=== PATIENT | female | born 1960 | race Hispanic/Latino ===

== ENCOUNTER 2020-01-31 18:45 | Inpatient (IN) | payer SELFPAY ==
[~2020-01-31] VITALS: Ht 152.4 cm; Wt 67.6 kg
[2020-01-31 19:25] LABS: APPEARANCE,URINE Clear (CLEAR); BILIRUBIN,URINE Negative (NEGATIVE); COLOR,URINE Yellow (YELLOW); GLUCOSE, URINE (UA) 500 mg/dL (NEGATIVE); KETONES,URINE Trace mg/dL (NEGATIVE); LEUKOCYTE ESTERASE ,URINE Large (NEGATIVE); NITRATE,URINE Negative (NEGATIVE); OCCULT BLOOD,URINE Negative (NEGATIVE); PH,URINE 5.5 (5.0-8.0); PROTEIN,URINE Negative (NEGATIVE)
[2020-01-31 19:40] LABS: BACTERIA,URINE Moderate /HPF (None Seen); SQUAMOUS EPITHELIAL CELL,UR Few /HPF (0-2)
[2020-01-31 19:41] LABS: MUCUS,URINE Few LPF (None Seen)
[2020-01-31] MEDS ORDERED: KETOROLAC TROMETHAMINE 30MG/ML ONE (19:49)
[2020-01-31] MEDS ORDERED: CEFTRIAXONE SODIUM 2 GM VIAL ONE (19:49)
[2020-01-31] MEDS ORDERED: ONDANSETRON HCL 4 MG/2 ML VIAL ONE (19:49)
[2020-01-31] MEDS ORDERED: SODIUM CHLORIDE 0.9% 1000ML 1,000 ML IV ONE ×2 (19:49→21:48)
[2020-01-31 20:07] LABS: BASOPHILS % (AUTO) 0.3 % (0.0-5.0); EOSINOPHILS % (AUTO) 0.2 % (0.0-8.0); LYMPHOCYTES % (AUTO) 12.1 % (21.0-51.0); MEAN CORPUSCULAR HEMOGLOBIN 29.3 pg (27.0-33.0); MEAN CORPUSCULAR HGB CONC 33.9 g/dL (32.0-36.0); MEAN CORPUSCULAR VOLUME 86.4 fL (79-99); MONOCYTES % (AUTO) 7.4 % (3.0-13.0); NEUTROPHILS % (AUTO) 79.5 % (40.0-77.0); PLATELET COUNT (AUTO) 290 K/uL (130-400); RED BLOOD CELL COUNT(AUTO) 5.09 MIL/uL (4.00-5.50); RED CELL DISTRIBUTION WIDTH 11.9 % (11.0-15.5); WHITE BLOOD COUNT (AUTO) 19.1 K/uL (4.8-10.8)
[2020-01-31 20:22] LABS: CREATININE 0.6 mg/dL (0.5-1.5); POTASSIUM 3.7 mmol/L (3.5-5.1)
[2020-01-31 20:26] LABS: ALBUMIN 3.1 g/dL (3.5-5.0); BILIRUBIN,DIRECT 0.4 mg/dL (0.0-0.3); BILIRUBIN,TOTAL 1.2 mg/dL (0.2-1.0); TOTAL PROTEIN, SERUM 8.5 g/dL (6.0-8.3)
[2020-01-31] MEDS ORDERED: ZOSYN 3.375GM+NS 50ML 50 ML IV ONE (21:48)
[2020-01-31] MEDS ORDERED: HYDRALAZINE HCL 20 MG/ML VIAL IV PRN (23:15)
[2020-01-31] MEDS ORDERED: ONDANSETRON HCL 4 MG/2 ML VIAL IV PRN (23:15)
[2020-01-31] MEDS ORDERED: MORPHINE SULFATE 2 MG/ML 1ML SYG IV PRN (23:15)
[2020-01-31] MEDS ORDERED: ACETAMINOPHEN 325 MG TAB PO PRN (23:15)
[2020-02-01] VITALS (27 sets, daily range): BP systolic 91–139; BP diastolic 46–86
[2020-02-01] MEDS: SODIUM CHLORIDE 0.9% 1000ML 1,000 ML IV SCH ×2 (01:41→09:36)
[2020-02-01 02:30] LABS: HEMOGLOBIN A1C 8.8 % (4.0-6.0)
[2020-02-01] MEDS ORDERED: ZOSYN 3.375GM+NS 50ML 50 ML IV SCH (05:00)
[2020-02-01] MEDS ORDERED: METRONIDAZOLE 500MG/100ML BAG 100 ML IV SCH ×2 (05:00→06:00)
[2020-02-01 05:22] LABS: BASOPHILS % (AUTO) 0.2 % (0.0-5.0); HEMATOCRIT 37.4 % (36-48); LYMPHOCYTES % (AUTO) 16.5 % (21.0-51.0); MEAN CORPUSCULAR HEMOGLOBIN 29.3 pg (27.0-33.0); MEAN CORPUSCULAR HGB CONC 33.4 g/dL (32.0-36.0); MEAN CORPUSCULAR VOLUME 87.8 fL (79-99); MONOCYTES % (AUTO) 9.8 % (3.0-13.0); NEUTROPHILS % (AUTO) 72.1 % (40.0-77.0); PLATELET COUNT (AUTO) 237 K/uL (130-400); RED BLOOD CELL COUNT(AUTO) 4.26 MIL/uL (4.00-5.50); RED CELL DISTRIBUTION WIDTH 11.9 % (11.0-15.5); WHITE BLOOD COUNT (AUTO) 13.7 K/uL (4.8-10.8)
[2020-02-01 05:44] LABS: ALBUMIN 2.5 g/dL (3.5-5.0); BILIRUBIN,TOTAL 0.8 mg/dL (0.2-1.0); CREATININE 0.6 mg/dL (0.5-1.5); POTASSIUM 3.5 mmol/L (3.5-5.1); TOTAL PROTEIN, SERUM 6.8 g/dL (6.0-8.3)
[2020-02-01] MEDS: ZOSYN 3.375GM+NS 50ML 50 ML IV SCH ×3 (05:49→20:55)
[2020-02-01] MEDS ORDERED: METRONIDAZOLE 500 MG TABLET PO SCH (09:00)
[2020-02-01] MEDS: FAMOTIDINE 20MG TAB 20 MG TAB PO SCH ×2 (09:24→20:54)
[2020-02-01] MEDS ORDERED: LIDOCAINE PF 2% 5ML ABBOJECT ONE (09:37)
[2020-02-01] MEDS ORDERED: SUCCINYLCHOLINE CHLORIDE 20 MG/ML 10 ML VIAL ONE ×2 (09:38→09:43)
[2020-02-01] MEDS ORDERED: FENTANYL CITRATE PF 50 MCG/1 ML 2ML VIAL ONE (09:38)
[2020-02-01] MEDS ORDERED: PROPOFOL 10 MG/ML 20ML VIAL IV ONE (09:38)
[2020-02-01] MEDS ORDERED: ROCURONIUM 10MG/1ML SYR 10 MG/ML ML ONE (09:38)
--- NOTE | 2020-02-01 09:56 | NUR ---
TO OR VIA STRETCHER NOW. CONSENT OBTAINED BY PM NURSE.
[2020-02-01] MEDS ORDERED: MIDAZOLAM HCL 1 MG/ML 2ML VIAL ONE (10:20)
[2020-02-01] MEDS ORDERED: BUPIVACAINE/PF 0.5% 30ML VIAL ONE (10:35)
[2020-02-01] MEDS ORDERED: NEOSTIGMINE 5MG/5ML SYR IV ONE (10:54)
[2020-02-01] MEDS ORDERED: KETOROLAC TROMETHAMINE 30MG/ML ONE (10:54)
[2020-02-01] MEDS ORDERED: GLYCOPYRROLATE 1 MG/5 ML SYRINGE ONE (10:54)
[2020-02-01] MEDS ORDERED: ONDANSETRON HCL 4 MG/2 ML VIAL ONE (10:54)
[2020-02-01] MEDS ORDERED: MEPERIDINE-PF 25 MG/ML SYG ONE ×2 (11:28→11:43)
--- NOTE | 2020-02-01 13:30 | NUR ---
REPORT RECEIVED FROM RN KAREN IN RECOVERY,PT RETURNED TO ROOM .AWAKE AND ALERT. IVF INFUSING VIA 18G AT 100ML/HR. TOMMIE IN PLACE LT LOWER ABD AND NOW EMPTED OF 90 ML BLOOD
--- NOTE | 2020-02-01 15:56 | NUR ---
CM NOTE PT RESIDES WITH SPOUSE, INDEPENDENT WITH ADLS AND AMBULATION. DRIVES. NO DME. PROVIDED WITH [facility] AND [facility] ASSIST PRO[facility]. PT STATES WILL FOLLOWUP WITH A PCP. NO DC NEEDS. Addendum: 02/01/20 at 1559 by JODI BATRES CM Amended: Links added.
--- NOTE | 2020-02-01 17:00 | NUR ---
ASST. TO BR, VOIDED LG. AMT. WANTS TO SIT IN CHAIR.
[2020-02-01] MEDS: ACETAMINOPHEN 325 MG TAB PO PRN (21:03)
[2020-02-02] VITALS (7 sets, daily range): BP systolic 102–137; BP diastolic 41–83
[2020-02-02] MEDS: SODIUM CHLORIDE 0.9% 1000ML 1,000 ML IV SCH ×2 (05:05→20:25)
[2020-02-02 05:38] LABS: HEMATOCRIT 39.6 % (36-48); MEAN CORPUSCULAR HEMOGLOBIN 29.4 pg (27.0-33.0); MEAN CORPUSCULAR HGB CONC 33.1 g/dL (32.0-36.0); RED BLOOD CELL COUNT(AUTO) 4.45 MIL/uL (4.00-5.50); RED CELL DISTRIBUTION WIDTH 12.2 % (11.0-15.5); WHITE BLOOD COUNT (AUTO) 13.5 K/uL (4.8-10.8)
[2020-02-02] MEDS: ZOSYN 3.375GM+NS 50ML 50 ML IV SCH ×3 (06:05→22:00)
[2020-02-02 06:07] LABS: CREATININE 0.8 mg/dL (0.5-1.5); POTASSIUM 3.3 mmol/L (3.5-5.1)
[2020-02-02] MEDS ORDERED: LIDOCAINE HCL-MPF 1% 2ML VIAL IJ PRN (07:30)
[2020-02-02] MEDS ORDERED: POTASSIUM CHLORIDE 20MEQ/100ML 100 ML IV PRN (07:30)
[2020-02-02] MEDS ORDERED: POTASSIUM CHLORIDE 10% ELIXIR 20 MEQ/15 ML UDCUP PO PRN (07:30)
[2020-02-02] MEDS: FAMOTIDINE 20MG TAB 20 MG TAB PO SCH ×2 (09:40→20:25)
[2020-02-02] MEDS: MAGNESIUM 2GM PREMIX 50ML 50 ML IV SCH (09:43)
--- NOTE | 2020-02-02 11:45 | NUR ---
IN TO SEE PT. HAS BEEN INFORMED OF TOMMIE BEING DISLODGED, WILL KEEP HER IN HOUSE A COUPLE MORE DAYS CONSIDERING APPENDIX BEING RUPTURED. WILL KEEP ON CLEAR LIQUID DIET AND SAME ABX.
--- NOTE | 2020-02-02 17:00 | NUR ---
HAD A LG. BOWEL MOVEMENT, FEELING BETTER, HAD A TEMP OF 101.1 EARLIER AND WAS FRANK TYLENOL.
[2020-02-03] MEDS: SODIUM CHLORIDE 0.9% 1000ML 1,000 ML IV SCH ×3 (01:05→21:05)
[2020-02-03] MEDS: ACETAMINOPHEN 325 MG TAB PO PRN (01:06)
[2020-02-03 04:10] VITALS: BP 139/69
[2020-02-03 05:34] LABS: HEMATOCRIT 34.1 % (36-48); MEAN CORPUSCULAR HGB CONC 34.3 g/dL (32.0-36.0); MEAN CORPUSCULAR VOLUME 87.4 fL (79-99); PLATELET COUNT (AUTO) 279 K/uL (130-400); RED CELL DISTRIBUTION WIDTH 12.1 % (11.0-15.5); WHITE BLOOD COUNT (AUTO) 14.1 K/uL (4.8-10.8)
[2020-02-03] MEDS: ZOSYN 3.375GM+NS 50ML 50 ML IV SCH ×3 (05:54→21:30)
[2020-02-03 05:56] LABS: BAND NEUTROPHILS % (MANUAL) 3 % (0-2); EOSINOPHILS % (MANUAL) 4 % (1-6); LYMPHOCYTES % (MANUAL) 10 % (22-44); MAN.DIFF COMMENT-IMPRESSION MANUAL DIFFERENTIAL; MONOCYTES % (MANUAL) 2 % (2-9); SEGMENTED NEUTROPHILS % 81 % (40-70)
[2020-02-03 05:57] LABS: PLATELET MORPHOLOGY COMMENT ADEQUATE
[2020-02-03 07:38] VITALS: BP 178/70
[2020-02-03] MEDS: FAMOTIDINE 20MG TAB 20 MG TAB PO SCH ×2 (08:26→21:30)
--- NOTE | 2020-02-03 08:36 | NUR ---
BP reported by Katya Field CNA 178/70, hr 75. Patient asymptomatic. Prepared to administer hydralazine 10 mg IVP, rechecked blood pressure with level 141/77, hr 82. Patient states was ambulating in room prior to blood pressure check this morning. Denies headache, blurred vision, no flushing noted to cheeks. Held hydralazine and will continue to monitor.
--- NOTE | 2020-02-03 08:53 | NUR ---
Called nuclear medicine to verify stress test would be performed today. Per Sal, exam to be performed around 11:00 am.
[2020-02-03 10:42] VITALS: BP 153/80
[2020-02-03] MEDS: LISINOPRIL 5 MG TABLET PO SCH (12:49)
[2020-02-03] MEDS: ENOXAPARIN SODIUM 40 MG/0.4 ML SYRINGE SQ SCH (12:50)
[2020-02-03 15:51] VITALS: BP 142/78
[2020-02-03 20:05] VITALS: BP 136/68
[2020-02-03 23:35] VITALS: BP 126/59
[2020-02-04 03:51] VITALS: BP 113/56
[2020-02-04] MEDS: ZOSYN 3.375GM+NS 50ML 50 ML IV SCH ×3 (05:14→20:13)
[2020-02-04 05:49] LABS: BASOPHILS % (AUTO) 0.2 % (0.0-5.0); EOSINOPHILS % (AUTO) 2.6 % (0.0-8.0); HEMATOCRIT 33.6 % (36-48); LYMPHOCYTES % (AUTO) 15.1 % (21.0-51.0); MEAN CORPUSCULAR HEMOGLOBIN 29.3 pg (27.0-33.0); MEAN CORPUSCULAR HGB CONC 33.9 g/dL (32.0-36.0); MEAN CORPUSCULAR VOLUME 86.4 fL (79-99); MONOCYTES % (AUTO) 6.8 % (3.0-13.0); NEUTROPHILS % (AUTO) 74.7 % (40.0-77.0); PLATELET COUNT (AUTO) 300 K/uL (130-400); RED BLOOD CELL COUNT(AUTO) 3.89 MIL/uL (4.00-5.50); RED CELL DISTRIBUTION WIDTH 11.9 % (11.0-15.5); WHITE BLOOD COUNT (AUTO) 12.5 K/uL (4.8-10.8)
[2020-02-04 06:12] LABS: CREATININE 0.6 mg/dL (0.5-1.5)
[2020-02-04 06:15] LABS: POTASSIUM 2.8 mmol/L (3.5-5.1)
[2020-02-04] MEDS: MAGNESIUM 2GM PREMIX 50ML 50 ML IV SCH (06:56)
[2020-02-04] MEDS: SODIUM CHLORIDE 0.9% 1000ML 1,000 ML IV SCH ×2 (07:20→14:54)
[2020-02-04 07:33] VITALS: BP 132/58
[2020-02-04] MEDS: FAMOTIDINE 20MG TAB 20 MG TAB PO SCH ×2 (08:24→20:13)
[2020-02-04] MEDS: LISINOPRIL 5 MG TABLET PO SCH (08:24)
[2020-02-04] MEDS: ENOXAPARIN SODIUM 40 MG/0.4 ML SYRINGE SQ SCH (08:25)
[2020-02-04 10:56] VITALS: BP 155/80
[2020-02-04 15:48] VITALS: BP 156/70
[2020-02-04 20:00] VITALS: BP 136/71
[2020-02-04 23:24] VITALS: BP 128/70
[2020-02-05] MEDS: SODIUM CHLORIDE 0.9% 1000ML 1,000 ML IV SCH (03:37)
[2020-02-05 03:45] VITALS: BP 143/81
[2020-02-05] MEDS: ZOSYN 3.375GM+NS 50ML 50 ML IV SCH ×3 (05:36→19:38)
[2020-02-05 06:05] LABS: BASOPHILS % (AUTO) 0.4 % (0.0-5.0); HEMATOCRIT 34.2 % (36-48); LYMPHOCYTES % (AUTO) 19.7 % (21.0-51.0); MEAN CORPUSCULAR HEMOGLOBIN 30.1 pg (27.0-33.0); MEAN CORPUSCULAR HGB CONC 34.8 g/dL (32.0-36.0); MEAN CORPUSCULAR VOLUME 86.6 fL (79-99); MONOCYTES % (AUTO) 8.8 % (3.0-13.0); NEUTROPHILS % (AUTO) 67.7 % (40.0-77.0); PLATELET COUNT (AUTO) 308 K/uL (130-400); RED BLOOD CELL COUNT(AUTO) 3.95 MIL/uL (4.00-5.50); RED CELL DISTRIBUTION WIDTH 11.8 % (11.0-15.5); WHITE BLOOD COUNT (AUTO) 8.5 K/uL (4.8-10.8)
[2020-02-05 06:26] LABS: CREATININE 0.6 mg/dL (0.5-1.5); POTASSIUM 3.3 mmol/L (3.5-5.1)
[2020-02-05 07:32] VITALS: BP 153/67
[2020-02-05] MEDS: POTASSIUM CHLORIDE 20 MEQ ERTAB PO PRN ×3 (08:05→14:14)
[2020-02-05] MEDS: FAMOTIDINE 20MG TAB 20 MG TAB PO SCH ×2 (09:19→19:37)
[2020-02-05] MEDS: LISINOPRIL 10 MG TABLET PO SCH (09:19)
[2020-02-05] MEDS: ENOXAPARIN SODIUM 40 MG/0.4 ML SYRINGE SQ SCH (09:20)
--- NOTE | 2020-02-05 09:31 | NUR ---
ARASH ZIEGLER IN TO SEE PT, ORDERED CT-SCAN OF ABD. AND PELVIS WITH CONTRAST FOR TOMORROW AM.
[2020-02-05 10:38] VITALS: BP 118/70
[2020-02-05] MEDS: CEPHALEXIN 500 MG CAPSULE PO SCH ×2 (11:23→19:37)
[2020-02-05 16:15] VITALS: BP 140/78
--- NOTE | 2020-02-05 18:00 | NUR ---
HAS BEEN UP AND AMBULATORY, NO C/O OF PAIN.
[2020-02-05 20:00] VITALS: BP 148/61
[2020-02-06] VITALS: BP 127/61
[2020-02-06] MEDS: CEPHALEXIN 500 MG CAPSULE PO SCH ×3 (01:39→19:48)
[2020-02-06 04:00] VITALS: BP 136/69
[2020-02-06 04:10] LABS: BASOPHILS % (AUTO) 0.5 % (0.0-5.0); EOSINOPHILS % (AUTO) 3.8 % (0.0-8.0); HEMATOCRIT 34.7 % (36-48); LYMPHOCYTES % (AUTO) 27.8 % (21.0-51.0); MEAN CORPUSCULAR HEMOGLOBIN 29.4 pg (27.0-33.0); MEAN CORPUSCULAR HGB CONC 33.4 g/dL (32.0-36.0); MEAN CORPUSCULAR VOLUME 87.8 fL (79-99); MONOCYTES % (AUTO) 9.5 % (3.0-13.0); NEUTROPHILS % (AUTO) 57.9 % (40.0-77.0); PLATELET COUNT (AUTO) 333 K/uL (130-400); RED BLOOD CELL COUNT(AUTO) 3.95 MIL/uL (4.00-5.50); RED CELL DISTRIBUTION WIDTH 11.9 % (11.0-15.5); WHITE BLOOD COUNT (AUTO) 8.1 K/uL (4.8-10.8)
[2020-02-06 04:33] LABS: ALBUMIN 2.1 g/dL (3.5-5.0); BILIRUBIN,TOTAL 0.2 mg/dL (0.2-1.0); CREATININE 0.6 mg/dL (0.5-1.5); POTASSIUM 3.9 mmol/L (3.5-5.1); TOTAL PROTEIN, SERUM 6.4 g/dL (6.0-8.3)
[2020-02-06] MEDS: ZOSYN 3.375GM+NS 50ML 50 ML IV SCH ×3 (04:33→19:47)
[2020-02-06 08:00] VITALS: BP 159/67
[2020-02-06] MEDS ORDERED: DIATR MEGLU/DIATRIZOATE SODIUM 30 ML BOTTLE ONE (08:25)
[2020-02-06] MEDS: FAMOTIDINE 20MG TAB 20 MG TAB PO SCH ×2 (09:00→19:48)
[2020-02-06] MEDS ORDERED: CEPH500C2 PO (09:51)
[2020-02-06] MEDS ORDERED: LISI10TA7 PO (09:51)
[2020-02-06 12:00] VITALS: BP 157/68
[2020-02-06] MEDS: LISINOPRIL 10 MG TABLET PO SCH (15:35)
[2020-02-06] MEDS: ENOXAPARIN SODIUM 40 MG/0.4 ML SYRINGE SQ SCH (15:36)
[2020-02-06 16:00] VITALS: BP 133/70
[2020-02-06 20:00] VITALS: BP 155/72
[2020-02-07 00:03] VITALS: BP 137/62
[2020-02-07] MEDS: CEPHALEXIN 500 MG CAPSULE PO SCH ×2 (02:01→09:56)
[2020-02-07 04:00] VITALS: BP 131/66
[2020-02-07] MEDS: ZOSYN 3.375GM+NS 50ML 50 ML IV SCH ×2 (04:14→14:00)
[2020-02-07 07:53] VITALS: BP 143/66
[2020-02-07] MEDS: FAMOTIDINE 20MG TAB 20 MG TAB PO SCH (09:57)
[2020-02-07] MEDS: LISINOPRIL 10 MG TABLET PO SCH (09:58)
[2020-02-07] MEDS: ENOXAPARIN SODIUM 40 MG/0.4 ML SYRINGE SQ SCH (10:02)
[2020-02-07 11:06] VITALS: BP 144/52
[2020-02-07] MEDS ORDERED: CEPH500T PO (13:17)
[2020-02-07] MEDS ORDERED: METR-172 PO (13:17)
== END 2020-02-07 15:29 | disposition home or self-care (01) | DRG 339 ==
LOC: EDH 18:45 → EDHIP 18:46 → 3AH 23:54
PROVIDERS: ADMIT Internal Medicine; ATTEND Internal Medicine
PROC: 0DTJ4ZZ Resection of Appendix, Percutaneous Endoscopic Approach (ICD-10-PCS; principal; 2020-02-01 10:20)
DX: K35.32 Acute appendicitis with perforation, localized peritonitis, and gangrene, without abscess (principal); E87.1 Hypo-osmolality and hyponatremia; E44.1 Mild protein-calorie malnutrition; E86.1 Hypovolemia; Z87.440 Personal history of urinary (tract) infections; E11.65 Type 2 diabetes mellitus with hyperglycemia; Z68.29 Body mass index [BMI] 29.0-29.9, adult
CPT/HCPCS: 36415; 74176; 80048; 80053; 80076; 81001; 82550; 82948; 83036; 83605; 83690; 83735; 84145; 85025; 85027; 87040; 87070; 87076; 87077; 87088; 87186; 93005; G0378; J0330; J0360; J0696; J1650; J1885; J2001; J2175; J2250; J2405; J2543; J2704; J2710; J3010; J3475; J3480; J3490; J7030; Q9963